=== PATIENT | male | born 1985 | race Caucasian/White ===

== ENCOUNTER 2020-04-18 07:05 | Outpatient (NON) | payer BC, SELFPAY ==
[2020-04-18 20:28] LABS: SARS-CoV-2 RNA PCR Negative
== END 2020-04-18 07:06 ==
LOC: ANHCOVIDDT 07:05
PROVIDERS: Visit Provider Physician Assistant Medical
DX: Z20.828 Contact with and (suspected) exposure to other viral communicable diseases (principal); R68.89 Other general symptoms and signs
CPT/HCPCS: 87635; C9803; U0003

== ENCOUNTER 2020-07-29 10:45 | Outpatient (CLI) | payer BC, SELFPAY ==
--- NOTE | ~2020-07-29 | US_ITS ---
US abdomen complete DATE: 07/29/2020 11:11 INDICATION: Generalized abdominal pain TECHNIQUE: Real-time imaging and Doppler analysis COMPARISON: August 02, 2015 CT abdomen pelvis noncontrast examination FINDINGS: No hepatic or pancreatic space-occupying mass lesion is evident. The pancreas is partially obscured however by bowel gas. Normal hepatopedal portal venous flow direction. No gallstones or gallbladder wall thickening or pericholecystic fluid. The common bile duct measures 4.5 mm, normal. The right kidney measures 9.8 cm length, left kidney 10.5 cm length. No renal mass lesion or hydronep hrosis is detected. Spleen measures 11 cm, within upper normal range. Abdominal aorta appears of normal caliber. The inferior vena cava is unremarkable. IMPRESSION: No significant abnormality Reviewed, dictated and finalized at [facility]. Reviewed, dictated and finalized at location B. GER RADIATION IMPRESSION: No significant abnormality
[2020-07-29 12:07] LABS: Basophils Percent Auto 0.5 % (0.2-1.2); Eosinophils Absolute Auto 0.2 K/mm3 (0-0.3); Hematocrit 46.1 % (42.0-52.0); Hemoglobin 15.6 g/dL (14.0-18.0); Immature Granulocyte Absolute 0.02 K/mm3 (0.00-0.031); Immature Granulocyte Percent A 0.3 % (0-0.5); Lymphocytes Absolute Auto 1.93 K/mm3 (0.9-3.2); Lymphocytes Percent Auto 26.3 % (18.3-44.2); Mean Corpuscular HGB Conc 33.8 g/dl (32-36); Mean Corpuscular Hemoglobin 29.9 pg (26-34); Mean Corpuscular Volume 88.5 fl (80-100); Mean Platelet Volume 12.4 fl (7.4-10.4); Monocytes Absolute Auto 0.6 K/mm3 (0.1-0.6); Monocytes Percent Auto 7.9 % (2.6-8.5); Neutrophils Absolute Auto 4.6 K/mm3 (1.3-6.7); Platelet Count Result 216 k/mm3 (150-375); Red Blood Count 5.21 M/mm3 (4.6-6.20); Red Cell Distribution Width 11.9 % (11.5-14.5); White Blood Count 7.4 K/mm3 (4.5-10.0)
[2020-07-29 12:21] LABS: Alanine Aminotransferase 34 U/L (4-50); Albumin Level 4.6 g/dL (3.5-5.1); Alkaline Phosphatase 75 U/L (38-126); Amylase 92 U/L (30-110); Anion Gap 8 mmol/L (8-16); Aspartate Amino Transferase 32 U/L (17-59); Bilirubin,Total 0.8 mg/dL (0.2-1.3); Blood Urea Nitrogen 18 mg/dL (9-20); Calcium 9.4 mg/dL (8.4-10.2); Carbon Dioxide 28 mmol/L (22-30); Chloride 105 mmol/L (98-107); Estimated Glomerular Filt Rate > 60; Glucose 94 mg/dL (75-110); Lipase 77 U/L (23-300); Potassium 4.2 mmol/L (3.4-5.0); Sodium 141 mmol/L (137-145)
== END 2020-07-29 10:46 | disposition home or self-care (01) ==
PROVIDERS: PCP Family Medicine; Visit Provider Nurse Practitioner Family
DX: R10.84 Generalized abdominal pain (principal); R11.0 Nausea
CPT/HCPCS: 36415; 76700; 80053; 82150; 83690; 84443; 85025

== ENCOUNTER 2020-08-11 06:50 | Outpatient (CLI) | payer BC, SELFPAY ==
--- NOTE | ~2020-08-11 | NM_ITS ---
EXAMINATION: NM hepatobiliary w pharm DATE: 08/11/2020 10:18 INDICATION: Generalized abdominal pain. COMPARISON: CT abdomen and pelvis 08/11/2020 TECHNIQUE: 4.7 mCi Tc-99m mebrofenin (Choletec) was administered intravenously. Scintigraphic images of the abdomen were obtained for one hour. Then, 1.2 mcg sincalide (Kinevac) IV was administered, an d imaging was continued for 30 minutes. FINDINGS: There is normal clearance of radiotracer from the blood pool. There is homogeneous tracer u ptake by the liver. Activity progresses to the bowel and gallbladder. Gallbladder ejection fraction (GBEF) was 52%. Note that most patients with gallbladder dysfunction have GBEF < 35%, which overlaps with the broad normal range of 10-90%. IMPRESSION: 1. Normal hepatobiliary scintigraphy. Reviewed, dictated and finalized at location A. TRICAL AND ELECTRONIC ASSEMBLER
--- NOTE | ~2020-08-11 | CT_ITS ---
EXAMINATION: CT abdomen pelvis w con EXAM DATE: 08/11/2020 07:31 INDICATION: R10.32 - Left lower quadrant pain . TECHNIQUE: Spiral CT of the abdomen and pelvis was performed following intravenous injection of 100 m L Omnipaque 350. Axial, coronal and sagittal images were reviewed. The dose-length product (DLP) fo r this examination was 540.93 mGy-cm. The exposure was tailored according to patient size (auto mA e xposure control), and iterative reconstruction (ASIR) was used as additional dose reduction technique . Comparison is made to prior examination from 08/02/2015. FINDINGS: The liver, spleen, adrenal glands and pancreas are unremarkable. Gallbladder is unremarkab le. No biliary obstruction. Portal and splenic veins are patent. Kidneys enhance symmetrically. T here is no hydronephrosis. The prostate is unremarkable. The bladder is collapsed at time of imagi ng limiting evaluation. There are scattered small mesenteric lymph nodes unchanged compared to prior study. The appendix is normal. The stomach and small bowel are unremarkable. Transverse, descending and si gmoid colon are collapsed at time of imaging, possibly with mild wall thickening, possible mild colit is. No free intraperitoneal gas. The heart is normal in size. There are no pericardial or pleura l effusions. The lung bases are unremarkable. There are no osteoblastic or osteolytic lesions ident ified. IMPRESSION: 1. Possible mild transverse, descending and sigmoid colonic colitis. Reviewed, dictated and finalized at location A. RMATION ASSURANCE MANAGER
== END 2020-08-11 06:51 | disposition home or self-care (01) ==
PROVIDERS: PCP Family Medicine; Visit Provider Nurse Practitioner Family
DX: R10.32 Left lower quadrant pain (principal); R10.84 Generalized abdominal pain; R11.0 Nausea
CPT/HCPCS: 74177; 78227; A9537; J2805; Q9967

== ENCOUNTER 2021-04-14 00:48 | Day surgery (SDC) | payer BC, SELFPAY ==
[2021-03-26 13:54] VITALS: BMI 28.8
[2021-04-14 07:55] VITALS: BMI 28.9
[2021-04-14 08:00] VITALS: BP 129/81; PULSE 66; RESP 16; TEMP 36.4; O2SAT 96
[2021-04-14] MEDS: LACTATED RINGERS 1,000 ML 150 ML IV CONT (08:21)
--- NOTE | 2021-04-14 08:30 | P.PNAN_ITS ---
Anes - Initial Pre Proc Eval Procedure: Operation Date: 04/14/21 09:15 Proposed Procedures p Esophagogastroduodenoscopy & Colonoscopy - Jese Loo MD Date/Time: 04/14/21 08:30 Surgeon: Jese Loo MD Pre Op Diagnosis: nausea, colitis Patient Data Age: 35 Gender: M Height: 1.78 m Weight: 91.4 kg Last Vital Signs Temp 36.4 C L 04/14/21 08:00 Pulse 66 04/14/21 08:00 Resp 16 04/14/21 08:00 BP 129/81 04/14/21 08:00 Pulse Ox 96 04/14/21 08:00 Allergies Allergy/AdvReac Type Severity Reaction Status Date / Time No Known Allergies Allergy Verified 04/14/21 07:54 Home Medications Medication Instructions Recorded Confirmed Type ondansetron HCl 4 mg tablet 4 mg PO Q8H PRN #20 tablet 07/23/20 04/14/21 Rx omeprazole 40 mg capsule,delayed 40 mg PO DAILY #30 cap 07/28/20 04/14/21 Rx release cetirizine 10 mg chewable tablet 10 mg PO DAILY 08/26/20 04/14/21 History multivitamin 1 tablet PO DAILY 08/26/20 04/14/21 History Patient hx anesthesia problems: none Family hx anesthesia problems: none Results Review: All pre-operative results and documents have been reviewed as p art of the pre-operative evaluation. [facility] Past Medical History Medical History Acute sinusitis, unspecified BMI 29.0-29.9,adult Dietary counseling and surveillance (04/11/18) Irritability Family History Family History Father No problems noted. Mother No problems noted. Sibling No problems noted. 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 Informed Consent: The patient's anesthetic plan and its attendant risks and benefits were discussed with the patient/family/POA. Questions were solicited and answers provided to the satisfaction of the patient/family/POA.
--- NOTE | 2021-04-14 08:45 | PM.HPGS ---
History of Present Illness History of Present Illness Consent: Risks, benefits, and alternatives have been discussed and questions answered. Patient agrees to proceed with procedure. Chief complaint: nausea, colitis Narrative: Sigifredo Headley is a 35 year old male with intermittent nausea and not feeling himself, denies blood in stools or diarrhea. CT scan earlier this year showed possible colitis. Never had scopes. Review of Systems Constitutional: Constitutional: Denies headache(s) and Denies weakness Eyes: Eyes: Denies blurry vision ENT: Reports Normal hearing present, Denies headache(s) and Denies neck pain Cardiovascular: Cardiovascular: Denies chest pain and Denies dyspnea Respiratory: Respiratory: Denies dyspnea Gastrointestinal: Gastrointestinal: Reports no additional gastrointestinal complaints Genitourinary: Genitourinary: Denies dysuria Musculoskeletal: Musculoskeletal: Denies neck pain Integumentary/Breasts: Skin/Breast: Denies dry skin Neurologic: Reports Normal hearing present, Denies headache(s) and Denies weakness Psychiatric: Psychiatric: Denies anxiety Endocrine: Endocrine: Denies change in body appearance Hematologic/Lymphatic: Hematologic/Lymphatic: Denies easy bleeding Allergic/Immunologic: Allergic/Immunologic: Denies urticaria PMF Past Medical History Medical History (Updated 04/14/21 @ 08:46 by Jese Loo MD) Abnormal CT scan, colon Acute sinusitis, unspecified BMI 29.0-29.9,adult Dietary counseling and surveillance (04/11/18) Irritability Family History Family History Father No problems noted. Mother No problems noted. Sibling No problems noted. 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 Gender identity (if verbalized by the patient): Male Spiritual care concerns: No Meds Home Medications and Allergies Home Medications Medication Instructions Recorded Confirmed Type ondansetron HCl 4 mg tablet 4 mg PO Q8H PRN #20 tablet 07/23/20 04/14/21 Rx omeprazole 40 mg capsule,delayed 40 mg PO DAILY #30 cap 07/28/20 04/14/21 Rx release cetirizine 10 mg chewable tablet 10 mg PO DAILY 08/26/20 04/14/21 History multivitamin 1 tablet PO DAILY 08/26/20 04/14/21 History Allergies Allergy/AdvReac Type Severity Reaction Status Date / Time No Known Allergies Allergy Verified 04/14/21 07:54 Vital Signs Vital Signs - 24 hr 04/14/21 08:00 Temperature 97.5 F L Pulse Rate 66 Respiratory Rate 16 Blood Pressure 129/81 Pulse Oximetry 96 Exam Const: General: comfortable and no acute distress HENMT: General nose exam: Normal nares present Eyes: General: appearance normal, both eyes and all related structures Neck: Neck: no JVD Resp: Auscultation: clear to auscultation bilaterally Cardio: Rate: regular rate Rhythm: regular rhythm GI: Inspection: non-distended GI Palp: Yes Soft to palpation Skin: General skin exam: normal color Neuro: General: gait normal Speech: normal speech Extrem: General: normal to inspection Psych: Mental Status: mental status grossly normal Assessment and Plan Assessment and plan (1) Nausea: Code(s): R11.0 - Nausea Status: Acute Assessment and Plan: egd with bx (2) Abnormal CT scan, colon: Code(s): R93.3 - Abnormal findings on diagnostic imaging of other parts of digestive tract Status: Acute Assessment and Plan: colonoscopy to assess if colitis
[2021-04-14] MEDS: BENZOCAINE (*SP) 60 ML SPRAY CAN (HURRICAINE) 1 SPRAY MUCOUS MEM (08:51)
--- NOTE | 2021-04-14 09:14 | SUR.OPER ---
EGD START 851, END 856 COLONOSCOPY START 901, END 911
[2021-04-14 09:16] VITALS: BP 110/63; PULSE 58; RESP 18; O2SAT 100
[2021-04-14 09:26] VITALS: BP 115/75; PULSE 61; RESP 16; O2SAT 99
[2021-04-14 09:36] VITALS: BP 110/78; PULSE 53; RESP 14; O2SAT 100
== END 2021-04-14 09:46 | disposition home or self-care (01) ==
PROVIDERS: PCP Family Medicine; Visit Provider Internal Medicine Gastroenterology
PROC: 0DJ08ZZ Inspection of Upper Intestinal Tract, Via Natural or Artificial Opening Endoscopic (ICD-10-PCS; CPT 43235; principal; 2021-04-14 09:15)
DX: K52.89 Other specified noninfective gastroenteritis and colitis (principal); R11.0 Nausea; F17.290 Nicotine dependence, other tobacco product, uncomplicated; F12.90 Cannabis use, unspecified, uncomplicated
CPT/HCPCS: 45380; 43239; 88305; J2704; J7120